=== PATIENT | male | born 1985 | race Caucasian/White ===

== ENCOUNTER 2021-12-01 07:10 | Emergency (ER) | payer OTHER ==
[~2021-12-01] VITALS: Ht 172.7 cm; Wt 86.4 kg
[2021-12-01] MEDS ORDERED: LIDOCAINE 2% MDV 20ML VIAL SC ONE (08:00)
[2021-12-01] MEDS ORDERED: BOOSTRIX/ADACEL VACCINE (DIPHTH/PERTUSS/ACELL/TETANUS) 0.5ML SYR IM ONE (08:00)
[2021-12-01] MEDS ORDERED: NEOSPORIN OINT 0.9 GM PKT TOP ONE (09:05)
[2021-12-01] MEDS ORDERED: CEPH500C PO (09:16)
[2021-12-01 10:00] VITALS: BP 124/75
== END 2021-12-01 10:30 | disposition home or self-care (01) ==
LOC: M ED 07:10
DX: S91.011A Laceration without foreign body, right ankle, initial encounter (principal); S86.001A Unspecified injury of right Achilles tendon, initial encounter; F17.200 Nicotine dependence, unspecified, uncomplicated; F10.10 Alcohol abuse, uncomplicated; Y28.0XXA Contact with sharp glass, undetermined intent, initial encounter; Y92.009 Unspecified place in unspecified non-institutional (private) residence as the place of occurrence of the external cause; Y93.9 Activity, unspecified; Y99.9 Unspecified external cause status

== ENCOUNTER 2023-08-12 16:04 | Emergency (ER) | payer OTHER ==
[~2023-08-12] VITALS: Ht 172.7 cm; Wt 97.9 kg
[~2023-08-12 16:04] MED LIST: CEPH500C PO
[2023-08-12 16:06] VITALS: BP 119/84; TEMP 98.4; O2SAT 97
[2023-08-12] MEDS ORDERED: OMEP40CA5 (16:34)
[2023-08-12] MEDS ORDERED: LORA-1041 (16:34)
[2023-08-12 17:12] LABS: BASO % 0.3 % (0.0-1.0); EOS # 0.3 10^3/uL (0.0-0.5); EOS % 2.4 % (0.0-3.0); HEMATOCRIT 43.4 % (42.0-52.0); HEMOGLOBIN 15.3 g/dl (13.5-17.5); LYMPH # 2.5 10^3/uL (1.5-5.0); LYMPH % 19.7 % (24.0-44.0); MEAN CORPUSCULAR HEMOGLOBIN 30.7 pg (27.0-33.0); MEAN CORPUSCULAR HGB CONC 35.3 g/dl (32.0-36.5); MEAN CORPUSCULAR VOLUME 87.1 fl (80.0-96.0); MONO # 0.8 10^3/uL (0.0-0.8); MONO % 6.4 % (2.0-8.0); NEUTROPHILS # 8.9 10^3/uL (1.5-8.5); NEUTROPHILS % 70.7 % (36.0-66.0); PLATELET COUNT, AUTOMATED 192 10^3/uL (150-450); RED BLOOD COUNT 4.98 10^6/uL (4.30-6.10); WHITE BLOOD COUNT 12.5 10^3/uL (4.0-10.0)
[2023-08-12 17:39] LABS: LIPASE 44 U/L (12-53)
[2023-08-12 17:40] LABS: INR 1.01
[2023-08-12 17:41] LABS: AMYLASE 37 U/L (30-118); PARTIAL THROMBOPLASTIN TIME 28.1 SECONDS (24.8-34.2)
[2023-08-12 17:42] LABS: ALBUMIN 3.8 G/DL (3.2-5.2); ALKALINE PHOSPHATASE 79 U/L (46-116); ALT/SGPT 20 U/L (7.0-40); AST/SGOT 10 U/L (<34); BILIRUBIN,DIRECT 0.1 MG/DL (<0.4); BILIRUBIN,TOTAL 0.3 MG/DL (0.3-1.2); BLOOD UREA NITROGEN 17 MG/DL (9-23); CARBON DIOXIDE LEVEL 28 MMOL/L (20-31); CHLORIDE LEVEL 106 MMOL/L (98-107); CREATININE FOR GFR 0.85 MG/DL (0.70-1.30); GLOMERULAR FILTRATION RATE > 60.0 (>60); GLUCOSE, FASTING 94 MG/DL (60-100); POTASSIUM SERUM 4.2 MMOL/L (3.5-5.1); SODIUM LEVEL 139 MMOL/L (136-145)
== END 2023-08-12 19:17 | disposition left against medical advice (07) ==
LOC: M ED 16:04
DX: Z53.21 Procedure and treatment not carried out due to patient leaving prior to being seen by health care provider (principal)

== ENCOUNTER 2023-12-13 08:58 | Day surgery (SDC) | payer OTHER ==
[~2023-12-13] VITALS: Ht 172.7 cm; Wt 90.4 kg
[~2023-12-13 08:58] MED LIST changes: +COLA100C5 PO; +FIDA200TA PO; +LORA-1041; +MIRA3350 PO; +OMEP40CA5 PO
[2023-12-13] MEDS: NS 1,000 ML IV ONE (09:12)
[2023-12-13] MEDS ORDERED: LIDOCAINE 2% INJ 100 MG/5 ML SYRINGE As Ordered ONE (09:55)
[2023-12-13] MEDS ORDERED: propofoL 200 MG/20 ML VIAL As Ordered ONE (09:55)
[2023-12-13] MEDS ORDERED: MIDAZOLAM INJ 2MG/2ML VIAL As Ordered ONE (09:56)
[2023-12-13] MEDS ORDERED: fentaNYL 100 MCG/2 ML INJECTION As Ordered ONE (10:01)
[2023-12-13] MEDS ORDERED: ONDANSETRON 4MG 2ML VIAL As Ordered ONE (10:18)
[2023-12-13 10:46] VITALS: TEMP 97.2
[2023-12-13 11:15] VITALS: BP 119/77; O2SAT 99
== END 2023-12-13 11:25 | disposition home or self-care (01) ==
LOC: M OPP 08:58
PROVIDERS: ATTEND Internal Medicine Gastroenterology
DX: Z12.11 Encounter for screening for malignant neoplasm of colon (principal); Z12.12 Encounter for screening for malignant neoplasm of rectum; K64.4 Residual hemorrhoidal skin tags; K64.8 Other hemorrhoids; K21.00 Gastro-esophageal reflux disease with esophagitis, without bleeding; K29.70 Gastritis, unspecified, without bleeding; Z79.899 Other long term (current) drug therapy; F17.210 Nicotine dependence, cigarettes, uncomplicated; Z88.1 Allergy status to other antibiotic agents; Z91.010 Allergy to peanuts
CPT/HCPCS: 43239; 45380; 88305; J2250; J2405; J3010